=== PATIENT | female | born 1935 | race Caucasian/White ===

== ENCOUNTER 2017-11-30 10:04 | Emergency (ER) | payer MEDICARE, OTHER ==
[~2017-11-30] VITALS: Ht 160 cm; Wt 85.3 kg
--- NOTE | 2017-11-30 10:15 | NUR ---
A/OX4, C/O LEFT WRIST INJURY,PAIN S/P TRIPPED AND FELL THIS AM, +SWELLING. DENIES HITTING HEAD, NO KO.NAD VSS RR EVEN AND UNLABORED. PENDING ER MD RBIERA
[2017-11-30] MEDS ORDERED: ACETAMINOPHEN ES 500 MG TABLET ONE (10:51)
[2017-11-30] MEDS: ACETAMINOPHEN ES 500 MG TABLET PO ONE (10:53)
[2017-11-30 11:45] VITALS: BP 118/65
[2017-11-30] MEDS ORDERED: HYDROCODONE/APAP 5/325MG 1 EACH TABLET ONE (11:48)
[2017-11-30] MEDS: HYDROCODONE/APAP 5/325MG 1 EACH TABLET PO ONE (11:50)
--- NOTE | 2017-11-30 11:50 | NUR ---
VERBALLY ORDERED BY DR KARTIK RODRIGUES 5/325 PO GIVEN.
--- NOTE | 2017-11-30 11:51 | NUR ---
Patient discharged to home in stable condition. Written and verbal after care instructions given. Patient verbalizes understanding of instruction.
--- NOTE | 2017-11-30 12:22 | NUR ---
Patient discharged to home in stable condition. Written and verbal after care instructions given. Patient verbalizes understanding of instruction.
[2017-11-30] MEDS ORDERED: HYDROCODONE/APAP 5/325MG 1 EACH TABLET PO ONE (12:30)
== END 2017-11-30 12:21 | disposition home or self-care (01) ==
LOC: ER 10:06
DX: S52.502A Unspecified fracture of the lower end of left radius, initial encounter for closed fracture (principal); S52.612A Displaced fracture of left ulna styloid process, initial encounter for closed fracture; E10.9 Type 1 diabetes mellitus without complications; M85.80 Other specified disorders of bone density and structure, unspecified site; W01.0XXA Fall on same level from slipping, tripping and stumbling without subsequent striking against object, initial encounter; Y93.89 Activity, other specified; Y92.89 Other specified places as the place of occurrence of the external cause; Y99.8 Other external cause status
CPT/HCPCS: 73110; 99284; A4606; Z7610